=== PATIENT | female | born 1995 | race Hispanic/Latino ===

== ENCOUNTER 2017-09-15 04:32 | Emergency (ER) | payer SELFPAY ==
[2017-09-15 05:53] LABS: Pregnancy Test - Urine (BHCG) Negative (Negative); Pregu Control Background? CLEAR/WHITE (CLR/WHITE); Pregu Control Bar Appear? YES (CONTROL BAR); Specific Gravity 1.008 (1.002-1.036)
--- NOTE | 2017-09-15 07:45 | RAD ---
PA AND LATERAL VIEWS CHEST: HISTORY: Shortness of breath, cough. FINDINGS: The heart size is normal. The lungs are expanded without focal areas of consolidation, pneumothorax, or pleural effusions. IMPRESSION: No radiographic evidence of acute cardiopulmonary process. POS: [facility]
== END 2017-09-15 05:55 | disposition home or self-care (01) ==
LOC: ERS 04:32
DX: R06.02 Shortness of breath (principal); R05 Cough
CPT/HCPCS: 71046; 81025; 93005

== ENCOUNTER 2017-09-19 23:27 | Emergency (ER) | payer SELFPAY ==
[2017-09-20 00:09] LABS: #Basophils 0.1 thou/uL (0.0-0.2); #Eosinphils 0.2 thou/uL (0.0-0.7); #Lymphocytes 3.7 thou/uL (1.20-3.40); #Monocytes 0.5 thou/uL (0.11-0.59); #Neutrophils 4.6 thou/uL (1.40-6.50); %Basophils 1.1 % (0.0-1.0); %Eosinophils 1.7 % (0.0-10.0); %Lymphocytes 40.8 % (21.0-51.0); %Monocytes 5.9 % (0.0-10.0); %Neutrophils 50.5 % (42.0-75.0); Hemoglobin 13.1 g/dL (12.0-16.0); Mean Corpuscular Hemoglobin 29.7 pg (27.0-31.0); Mean Corpuscular Volume 84.8 fl (81.0-99.0); Mean Platelet Volume 8.1 fL (7.4-10.4); Platelet Count 274 thou/uL (130-400); Red Blood Cell (RBC) Count 4.42 mill/uL (4.20-5.40); White Blood Cell (WBC) Count 9.2 thou/uL (4.8-10.8)
[2017-09-20 00:14] LABS: BHCG - Serum Negative (NEGATIVE); Pregs Control Background? CLEAR/WHITE (CLR/WHITE); Pregs Control Bar Appear? YES (CONTROL BAR)
[2017-09-20 00:28] LABS: ALT (SGPT) 20 U/L (8-55); AST (SGOT) 16 U/L (5-34); Albumin 4.1 g/dL (3.5-5.0); Alkaline Phosphatase 69 U/L (40-150); Anion Gap 14 mmol/L (10-20); BUN (Urea Nitrogen) 11 mg/dL (7.0-18.7); Bilirubin, Total 0.3 mg/dL (0.2-1.2); Calc. Creatinine Clearance 0 mL/min (70-130); Calcium 9.5 mg/dL (7.8-10.44); Carbon Dioxide 21 mmol/L (22-29); Chloride 108 mmol/L (98-107); Estimated GFR-MDRD Greater than 90; Globulin 3.4 g/dL (2.4-3.5); Glucose 104 mg/dL (70-105); Potassium 3.3 mmol/L (3.5-5.1); Protein, Total 7.5 g/dL (6.0-8.3); Sodium 140 mmol/L (136-145)
--- NOTE | 2017-09-20 08:05 | RAD ---
PA AND LATERAL VIEWS CHEST: HISTORY: Dyspnea. FINDINGS: Comparison is made with the exam of 09/15/17. The heart size is normal. The lungs are expanded without focal areas of consolidation, pneumothorace s, or pleural effusions. No acute osseous abnormalities are seen. IMPRESSION: No radiographic evidence of acute cardiopulmonary process. POS: [facility]
== END 2017-09-20 00:52 | disposition home or self-care (01) ==
LOC: ERS 23:27
DX: R06.02 Shortness of breath (principal); F41.9 Anxiety disorder, unspecified; Z79.899 Other long term (current) drug therapy
CPT/HCPCS: 36415; 71046; 80053; 84703; 85025; 85379; 93005

== ENCOUNTER 2018-03-23 18:46 | Emergency (ER) | payer SELFPAY ==
[2018-03-23 19:54] LABS: Bilirubin Negative (Negative); Blood, Urine Large (Negative); Clarity CLEAR (Clear); Glucose, Urine (Dipstick) Negative (Negative); Leukocyte Negative (Negative); Nitrite Negative (Negative); Protein, Urine (Dipstick) Negative (Neg-Trace); Specific Gravity, Urine 1.023 (1.002-1.036); pH, Urine 5.5 (5.0-9.0)
[2018-03-23 19:58] LABS: Pregnancy Test - Urine (BHCG) Negative (Negative); Pregu Control Background? CLEAR/WHITE (CLR/WHITE); Pregu Control Bar Appear? YES (CONTROL BAR); Specific Gravity 1.023 (1.002-1.036)
[2018-03-23 20:01] LABS: Bacteria/HPF None Seen HPF (None Seen); Hyaline Casts/LPF 0-3 HYALINE CAST LPF (0-3 Hyaline); RBC/HPF GREATER THAN 50-TNTC HPF (0-3); Squamous Epithelial 0-3 HPF (0-3); WBC/HPF 0-3 HPF (0-3)
[2018-03-23 20:13] LABS: #Basophils 0.1 thou/uL (0.0-0.2); #Eosinphils 0.1 thou/uL (0.0-0.7); #Lymphocytes 2.7 thou/uL (1.20-3.40); #Monocytes 0.5 thou/uL (0.11-0.59); #Neutrophils 6.4 thou/uL (1.40-6.50); %Basophils 0.8 % (0.0-1.0); %Eosinophils 1.2 % (0.0-10.0); %Lymphocytes 27.3 % (21.0-51.0); %Monocytes 4.6 % (0.0-10.0); Hemoglobin 14.3 g/dL (12.0-16.0); Mean Corpuscular Volume 85.7 fL (78.0-98.0); Mean Platelet Volume 8.5 fL (7.4-10.4); Platelet Count 292 thou/uL (130-400); Red Blood Cell (RBC) Count 4.78 mill/uL (4.20-5.40); White Blood Cell (WBC) Count 9.7 thou/uL (4.8-10.8)
[2018-03-23 20:35] LABS: ALT (SGPT) 26 U/L (8-55); AST (SGOT) 18 U/L (5-34); Albumin 4.3 g/dL (3.5-5.0); Alkaline Phosphatase 79 U/L (40-150); Anion Gap 10 mmol/L (10-20); BUN (Urea Nitrogen) 9 mg/dL (7.0-18.7); Bilirubin, Total 0.4 mg/dL (0.2-1.2); Calc. Creatinine Clearance 0 mL/min (70-130); Calcium 9.4 mg/dL (7.8-10.44); Carbon Dioxide 26 mmol/L (22-29); Estimated GFR-MDRD Greater than 90; Globulin 3.7 g/dL (2.4-3.5); Glucose 92 mg/dL (70-105); Potassium 3.7 mmol/L (3.5-5.1)
[2018-03-23 20:39] LABS: Chloride 106 mmol/L (98-107); Sodium 138 mmol/L (136-145)
[2018-03-25 19:39] LABS: Chlamydia by PCR Not Detected (NotDetected); GC by PCR Not Detected (NotDetected)
== END 2018-03-23 21:40 | disposition home or self-care (01) ==
LOC: ERS 18:46
DX: N93.9 Abnormal uterine and vaginal bleeding, unspecified (principal); F41.9 Anxiety disorder, unspecified; N76.0 Acute vaginitis
CPT/HCPCS: 36415; 80053; 81003; 81015; 81025; 84702; 85025; 86900; 86901; 87480; 87491; 87510; 87591; 87660; 88305; 99284

== ENCOUNTER 2018-12-29 13:45 | Emergency (ER) | payer SELFPAY ==
[2018-12-29] MEDS ORDERED: Bicillin LA 1.2 MILLION UNITS/2 ML SYRINGE ONE (13:57)
[2018-12-29] MEDS ORDERED: Acetaminophen 650 MG/20.3 ML UDCUP ONE (13:57)
[2018-12-29] MEDS ORDERED: Dexamethasone 4 mg/ml Vial ONE (13:57)
[2018-12-29] MEDS ORDERED: Ibuprofen 200 MG TAB ONE (15:13)
== END 2018-12-29 15:30 | disposition home or self-care (01) ==
LOC: ERS 13:45
DX: J02.9 Acute pharyngitis, unspecified (principal); F41.9 Anxiety disorder, unspecified
CPT/HCPCS: 87081; 87430; 87804; 96360; 96372; J0561; J1100

== ENCOUNTER 2019-02-27 19:52 | Emergency (ER) | payer OTHER, SELFPAY | END 2019-02-27 22:27 | disposition home or self-care (01) | LOC: ERS 19:52 | DX: O99.511 Diseases of the respiratory system complicating pregnancy, first trimester (principal); J02.9 Acute pharyngitis, unspecified; O99.341 Other mental disorders complicating pregnancy, first trimester; F41.9 Anxiety disorder, unspecified; Z3A.10 10 weeks gestation of pregnancy | CPT/HCPCS: 87081; 87430; 87804; 99283 ==

== ENCOUNTER 2019-09-07 19:38 | Inpatient (IN) | payer MEDICAID, OTHER, SELFPAY ==
[~2019-09-07 19:38] MED LIST: Bupivacaine HCl 0.5%/Epinephrine 1:200,000/PF 30 ml Vial ONE; Lidocaine 2% MPF 10 ML AMP (For Epidural Use) ONE
--- NOTE | 2019-09-07 20:52 | PDOC.FPROB ---
FMR OB H&P: HPI - History of Present Illness Chief Complaint: contractions Indentification: 23yo History of Present Illness: Ms. Andrew Adams is a 23yo who presents at 38.2wks (BRANDEN 09/19/19 by LMP/18.5wk sono) for evaluation of contractions. She states the past few days she has had several contractions but this morning the increased in frequency. She states they are not painful, just uncomfortable. She denies decreased movement, vaginal bleeding, vaginal discharge, or loss of fluid. She states her has been uncomplicated. She follows with [facility] Sterling Bunch Primary Care Physician: BRITTNEY Sterling Bunch FMR OB H&P: Current - Care : 2 Para: 1001 Gestational age: 38.2 Due date: 09/19/2019 Dating Criteria: LMP/18.5 wk sono Course/Complications: Obesity. 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 - Family History Family History: Denies FMR OB H&P: Medications - Current Home Medications: Medication Instructions Recorded Confirmed Type Vit37/Iron/Folic Acid 1 tab PO DAILY 09/07/19 09/07/19 History [P[place]ata Chewable Tablet] Allergies/Adverse Reactions: Allergies Allergy/AdvReac Type Severity Reaction Status Date / Time No Known Allergies Allergy Verified 09/07/19 20:39 FMR OB H&P: ROS - Review of Systems General: denies: fever/chills, weight/appetite/sleep changes, night sweats Eyes: denies: eye pain, double vision, scotomas ENT: denies: nasal congestion, rhinorrhea, sore throat Cardiovascular: denies: chest pain, palpitation, edema Respiratory: denies: cough, congestion, shortness of breath Gastrointestinal: denies: abdominal pain, nausea, vomiting, diarrhea, constipation Genitourinary (Female): reports: contractions. denies: incontinence, dysuria, hematuria, vaginal discharge, vaginal pain, vaginal bleeding, vaginal pressure Musculoskeletal: denies: pain, stiffness Neurologic: denies: numbness, syncope Integumentary: denies: itching, rash FMR OB H&P: Vital Signs - Maternal Vital signs: BP initially 140/91. Repeat 128/85. - Heart Tones Baseline: 150 Variability: moderate Acceleration: present Deceleration: absent Category: category 1 [place] contractions every: Uterine irritability, irregular contractions FMR OB H&P: Physical Exam - Physical Exam General: NAD, awake, alert and oriented HEENT: normocephalic and atraumatic, PERRLA, EOMI, MMM, conjunctiva clear, grossly normal vision, grossly normal hearing Neck: supple, FROM, trachea midline Breast: symmetric Heart: RRR, normal S1/S2, no murmurs/rubs/gallops General: CTAB, no respiratory distress, good air movement Abdomen: soft, gravid, non-tender Musculoskeletal: normal gait and station, pulses present Skin: no rash, good tugor Lymphatic: no unusual bruising or bleeding, no purpura, no petechia Psychiatric: intact recent and remote memory, good judgement and insight, normal mood and affect - Pelvic Exam SVE: BY RN: /-1 FMR OB H&P: A/P - Problem List (1) Term Current Visit: Yes Status: Acute Code(s): Z34.90 - ENCNTR FOR SUPRVSN OF NORMAL , UNSP, UNSP TRIMESTER (2) Obesity Current Visit: Yes Status: Acute Code(s): E66.9 - OBESITY, UNSPECIFIED (3) Elevated BP without diagnosis of hypertension Current Visit: Yes Status: Acute Code(s): R03.0 - ELEVATED BLOOD-PRESSURE READING, W/O DIAGNOSIS OF HTN Disposition: Term sIUP, lucretia - Will monitor for 4 hours and repeat cervical exam. - heart tracing monitor and tocomoter - Uterine irritability may be 2/2 dehydration, will give 1 L of LR Elevated BP without diagnosis of HTN - Will monitor for 4 hours with serial blood pressure readings. - Does not meet criteria for gestational HTN at this time. - Will order Pre-E labs to further stratify her risk - Patient missed BPP / NST yesterday in clinic. Will order BPP at this time to further evaluate. UPDATE: - Patient has had 5 elevated blood pressure readings since being in L&D. - BPP 6/8, 0/2 for breathing. Category 1 FHT tracing. KMI 5.9. - Has not had two that have been 4 hours apart to make the diagnosis of gHTN. - Will keep the patient overnight and monitor BP. If she has another elevated pressure >140/90 will meet criteria for gHTN and will plan for induction of labor. - Patient was included in decision making and is in agreement. - Discussed plan with Dr. Hyman and he is in agreement. Discussion: Date/Time: 09/07/192050 This H&P was discussed with Drs. Curiel and Boogie who agree with the above documentation and plan. Signature: David CLAY PGY1 Addendum - Attending - Attending Attestation Date/Time: 09/08/19 0710 I personally evaluated the patient and discussed the management with Dr. Matos last night. I agree with the History, Examination, Assessment and Plan documented above with any addition or exceptions noted below.
[2019-09-07] MEDS ORDERED: hydrALAZINE 20 MG/ML VIAL SLOW IVP PRN (21:11)
[2019-09-07] MEDS ORDERED: Lactated Ringer's 1,000 ML IV SCH (21:15)
[2019-09-07 21:38] LABS: #Basophils 0.1 thou/uL (0.0-0.2); #Eosinphils 0.6 thou/uL (0.0-0.7); #Lymphocytes 2.6 thou/uL (1.20-3.40); #Monocytes 0.6 thou/uL (0.11-0.59); #Neutrophils 5.1 thou/uL (1.40-6.50); %Basophils 0.7 % (0.0-1.0); %Eosinophils 6.8 % (0.0-10.0); %Lymphocytes 29.1 % (21.0-51.0); %Monocytes 6.3 % (0.0-10.0); %Neutrophils 57.1 % (42.0-75.0); Hemoglobin 11.8 g/dL (12.0-16.0); Mean Corpuscular HGB CONC 33.3 g/dL (32.0-36.0); Mean Corpuscular Volume 87.2 fL (78.0-98.0); Mean Platelet Volume 10.2 fL (7.4-10.4); Platelet Count 214 thou/uL (130-400); RBC Distribution Width 13.2 % (11.5-14.5); Red Blood Cell (RBC) Count 4.05 mill/uL (4.20-5.40); White Blood Cell (WBC) Count 8.9 thou/uL (4.8-10.8)
[2019-09-07 21:58] LABS: ALT (SGPT) 13 U/L (8-55); AST (SGOT) 16 U/L (5-34); Albumin 3.2 g/dL (3.5-5.0); Alkaline Phosphatase 317 U/L (40-110); Anion Gap 14 mmol/L (10-20); BUN (Urea Nitrogen) 8 mg/dL (7.0-18.7); Bilirubin, Total 0.3 mg/dL (0.2-1.2); Calc. Creatinine Clearance 0 mL/min (70-130); Calcium 8.5 mg/dL (7.8-10.44); Carbon Dioxide 18 mmol/L (22-29); Chloride 109 mmol/L (98-107); Estimated GFR-MDRD Greater than 90; Globulin 3.2 g/dL (2.4-3.5); Glucose 73 mg/dL (70-105); Potassium 3.8 mmol/L (3.5-5.1); Protein, Total 6.4 g/dL (6.0-8.3); Sodium 137 mmol/L (136-145)
[2019-09-07] MEDS ORDERED: Misoprostol 200 MCG TAB ONE (22:35)
--- NOTE | 2019-09-07 22:53 | PDOC.BPN ---
- Brief Progress Note Reviewed labs via remote [facility] login GBS neg Hgb 12.1 HIV/RPR neg Blood type: O+, Antibody screen: neg
[2019-09-07 22:59] LABS: Creatinine, Urine 127.05 mg/dL (47-110)
[2019-09-08] MEDS ORDERED: Misoprostol 200 MCG TAB PR PRN (00:19)
[2019-09-08] MEDS ORDERED: Carboprost 250 MCG/ML AMP IM PRN (00:19)
[2019-09-08] MEDS ORDERED: Lidocaine 1% (PF) 30 ML VIAL SC PRN (00:19)
[2019-09-08] MEDS ORDERED: NS / Oxytocin 40 units/1000ml 1,000 ML IV PRN (00:19)
[2019-09-08] MEDS ORDERED: Acetaminophen 500 MG TAB PO PRN (00:22)
[2019-09-08] MEDS ORDERED: Ondansetron PF 4 MG/2 ML Vial IVP PRN ×2 (00:22→11:56)
[2019-09-08] MEDS ORDERED: Promethazine HCl 25 MG/ML VIAL IM PRN ×2 (00:22→11:56)
[2019-09-08] MEDS ORDERED: NS w/ Oxytocin 10 units 500 ML IV SCH (00:30)
[2019-09-08 01:49] VITALS: BMI 39.2
--- NOTE | 2019-09-08 01:50 | PDOC.LDPN ---
Labor & Delivery Progress Note - Subjective Subjective: comfortable - Objective Abnormal vital signs: BP 147/88 General: NAD, resting Uterine fundus: non tender SVE: 01:30 Dilation: 2 Effacement: 75% Station: -2 FHT: category 1 [place] contractions every: Irregular - Assessment (1) Term Code(s): Z34.90 - ENCNTR FOR SUPRVSN OF NORMAL , UNSP, UNSP TRIMESTER Current Visit: Yes Status: Acute (2) Obesity Code(s): E66.9 - OBESITY, UNSPECIFIED Current Visit: Yes Status: Acute (3) Elevated BP without diagnosis of hypertension Code(s): R03.0 - ELEVATED BLOOD-PRESSURE READING, W/O DIAGNOSIS OF HTN Current Visit: Yes Status: Acute -: Term sIUP, induction of labor for gestational HTN @ 38.3wks gestation - Patient has had persistently elevated blood pressures. - Will plan for induction of labor with cytotec. Admitting to L&D. - SVE @ 01:30 unchanged (275/-2), midposition, moderately firm. Gestational HTN - 2 blood pressure readings >140/90 >4 hours apart. - Pro:Cr 0.2. CBC, CMP WNL - BPP 6/8 (0/2 for breathing movement) - Will closely monitor pressures while laboring for severe features. Plan discussed with Dr. Curiel and Dr. Hyman.
[2019-09-08 02:33] LABS: Hemoglobin 11.1 g/dL (12.0-16.0); Mean Corpuscular HGB CONC 33.5 g/dL (32.0-36.0); Mean Corpuscular Hemoglobin 29.2 pg (27.0-31.0); Mean Corpuscular Volume 87.4 fL (78.0-98.0); Mean Platelet Volume 10.1 fL (7.4-10.4); Platelet Count 193 thou/uL (130-400); RBC Distribution Width 13.2 % (11.5-14.5); Red Blood Cell (RBC) Count 3.79 mill/uL (4.20-5.40); White Blood Cell (WBC) Count 9.6 thou/uL (4.8-10.8)
[2019-09-08 03:11] LABS: HBSAg Index 0.15 S/CO (0-0.99); Hep B Surf Ag Non-Reactive S/CO (NonReactive)
[2019-09-08 04:57] LABS: Syphilis Antibody Nonreactive (Nonreactive); Syphilis Antibody Index 0.03 S/CO (<1.00 Non-Reactive)
--- NOTE | 2019-09-08 05:01 | PDOC.LDPN ---
Labor & Delivery Progress Note - Subjective Subjective: comfortable, painful contractions - Objective Vital signs reviewed and normal: yes General: NAD, resting, breathing through contractions Uterine fundus: non tender SVE: @ 0500 by RN Dilation: 3 Effacement: 75% Station: -2 FHT: category 1 [place] contractions every: 3-4 min, irregular - Assessment (1) Term Code(s): Z34.90 - ENCNTR FOR SUPRVSN OF NORMAL , UNSP, UNSP TRIMESTER Current Visit: Yes Status: Acute (2) Obesity Code(s): E66.9 - OBESITY, UNSPECIFIED Current Visit: Yes Status: Acute (3) Elevated BP without diagnosis of hypertension Code(s): R03.0 - ELEVATED BLOOD-PRESSURE READING, W/O DIAGNOSIS OF HTN Current Visit: Yes Status: Acute Plan: continue plan of care -: Term sIUP, induction of labor for gestational HTN @ 38.3wks gestation - Patient has had persistently elevated blood pressures. - Will plan for induction of labor with cytotec. Admitting to L&D. - SVE @ 01:30 unchanged (2/75/-2), midposition, moderately firm. - SVE @ 05:00 (3/75/-2) soft. Start pitocin for augmentation. Gestational HTN - Pro:Cr 0.2. CBC, CMP WNL - BPP 6/8 (0/2 for breathing movement) - Will closely monitor pressures while laboring for severe features. - 3 elevated pressures since last check (140/82, 144/83, 156/81) Denies headache , vision changes, abdominal pain. Plan discussed with Dr. Curiel and Dr. Hyman.
--- NOTE | 2019-09-08 07:26 | ULT ---
BIOPHYSICAL PROFILE ASSESSED BY ULTRASOUND: Date: 09/07/2019 INDICATION: Elevated blood pressure readings. FINDINGS: The fetus received 2/2 for tone, 0/2 for breathing, 2/2 for movement, and 2/2 for a mniotic fluid volume, for a total biophysical profile of 6/8. IMPRESSION: Biophysical profile of 09/15. POS: OFF
--- NOTE | 2019-09-08 07:31 | ULT ---
LIMITED OBSTETRICAL ULTRASOUND: Date: 09/07/2019 INDICATION: Evaluate growth and position. Elevated blood pressure. FINDINGS: There is a single, live intrauterine gestation in vertex presentation. Cardiac activity is noted at 1 18 beats/minute. The placenta is on the right aspect of the uterus. The biparietal diameter measured 9.31 cm, giving an estimated gestational age of 37 weeks and 6 days (65th percentile). The head circumference measured 33.90 cm, giving an estimated gestational age of 39 weeks and 0 days (48th percentile). The abdominal circumference measured 33.87 cm, giving an estimated gestational age of 37 weeks and 5 days (55th percentile). The femoral length measured 7.39 cm, giving an estimated gestational age of 37 weeks and 6 days (41st percentile). The estimated weight is 3,347 gm +/- 495 gm (7 lbs. 6 oz. +/- 17 oz.)(55th percentile). The average gestational age by ultrasound is 38 weeks and 1 days. Estimated due date is 09/20/2019. The gestational age by clinical data is 38 weeks and 2 days, with estimated date of 09/19/2019. KIM was 5.9 cm, which is below the 2.5th percentile. Limited survey demonstrated normal bladder, diaphragm, kidneys, stomach, and four chamber heart. IMPRESSION: 1. Single, live intrauterine gestation, with size and dates as above. 2. Oligohydramnios. POS: OFF
[2019-09-08] MEDS: Lactated Ringer's 1,000 ML IV SCH ×3 (07:41→19:35)
[2019-09-08] MEDS: Misoprostol 100 MCG TAB VAG SCH ×5 (07:41→23:43)
[2019-09-08] MEDS ORDERED: Magnesium Sulfate 20 gm/500 ml 20 GM/500 ML BAG ONE (09:11)
[2019-09-08] MEDS ORDERED: Calcium Gluconate 4.6 MEQ in Sodium Chloride 0.9% 100 ML IVPB PRN (09:12)
[2019-09-08] MEDS ORDERED: Magnesium Sulfate 20 GM/WATER 500 ML BAG IVPB SCH (09:15)
[2019-09-08] MEDS ORDERED: Magnesium Sulfate 20 gm/500 ml 20 GM/500 ML BAG IVPB SCH (09:15)
--- NOTE | 2019-09-08 09:25 | PDOC.LDPN ---
Labor & Delivery Progress Note - Subjective Subjective: comfortable - Objective Vital signs reviewed and normal: yes General: NAD Uterine fundus: non tender Dilation: 4 Effacement: 75% Station: -2 FHT: category 1 [place] contractions every: 3-5min AROM: clear fluid Plan: labor augmentation -: sIUP in labor with preeclampsia - Now with severe range pressures, discussed with patient, starting Mg - FHTs Cat 1. - Desires epidural at some point - AROM with clear fluid - SVE /-2 Addendum - Attending - Attending Attestation Date/Time: 09/08/19 2129 I personally evaluated the patient and discussed the management with Dr. Delong. I agree with the History, Examination, Assessment and Plan documented above with any addition or exceptions noted below. Recheck in 2-4 hours.
[2019-09-08] MEDS ORDERED: Fentanyl 4 mcg/Bup 0.1% Cadd 100 ML ONE ×2 (11:15→18:28)
[2019-09-08] MEDS ORDERED: EPHEDRINE 25 MG/5 ML SYRINGE SLOW IVP PRN (11:56)
[2019-09-08] MEDS ORDERED: Lactated Ringer's 500 ML IV PRN (11:56)
[2019-09-08] MEDS ORDERED: Acetaminophen 325 MG TAB PO PRN (11:56)
[2019-09-08] MEDS ORDERED: diphenhydrAMINE 50 MG/ML VIAL IVP PRN (11:56)
[2019-09-08] MEDS ORDERED: Naloxone HCl 0.4 mg/ml Vial IVP PRN ×2 (11:56)
[2019-09-08] MEDS ORDERED: Communication Order-Pharmacy FS PRN (12:00)
[2019-09-08] MEDS: Fentanyl 4 mcg/Bupivacaine 0.1% Cassette 100 ML EPIDURAL SCH ×2 (12:25→18:33)
--- NOTE | 2019-09-08 13:39 | PDOC.LDPN ---
Labor & Delivery Progress Note - Subjective Subjective: comfortable - Objective Vital signs reviewed and normal: yes (BP WNL) General: NAD, resting Uterine fundus: non tender Dilation: 5 Effacement: 75% Station: -2 FHT: category 1, variability present [place] contractions every: 1-2 IUPC placed: yes Plan: labor augmentation -: sIUP in labor with preeclampsia - No further severe range pressures - Cont mg - No alarm sx, adequate urine output - FHTs Cat 1. - Epidural placed at 1100 - SVE /-2 - IUPC placed - Cxn q 1-2 - Will start pit if cxn not adequate or space per protocol Ge Alejandro PGY1 This plan was discussed with Dr. Bonilla who agrees.
--- NOTE | 2019-09-08 16:43 | PDOC.LDPN ---
Labor & Delivery Progress Note - Subjective Subjective: comfortable - Objective Vital signs reviewed and normal: yes (BP WNL) General: NAD, resting Uterine fundus: non tender Dilation: 6 Effacement: 90% Station: -1 FHT: category 1, early decelerations, variability present [place] contractions every: 3 Plan: pitocin for augmentation -: sIUP in labor with preeclampsia - No further severe range pressures - Cont mg - No alarm sx, adequate urine output - FHTs Cat 1, early decels intermittently - SVE 690/-1 - Cxn q 3 and adequate mvu - Continue pit augmentation Ge Alejandro PGY1 This plan was discussed with Dr. Bonilla who agrees.
--- NOTE | 2019-09-08 19:42 | PDOC.LDPN ---
Labor & Delivery Progress Note - Subjective Subjective: comfortable - Objective Vital signs reviewed and normal: yes Abnormal vital signs: 1800: 2 pressures 140s/80s General: NAD, resting, breathing through contractions Uterine fundus: non tender SVE: 1930 Dilation: 8 Effacement: 90% Station: -1 FHT: category 1, variability present [place] contractions every: 2-3 min - Assessment (1) Term Code(s): Z34.90 - ENCNTR FOR SUPRVSN OF NORMAL , UNSP, UNSP TRIMESTER Current Visit: Yes Status: Acute (2) Obesity Code(s): E66.9 - OBESITY, UNSPECIFIED Current Visit: Yes Status: Acute (3) Preeclampsia Code(s): O14.90 - UNSPECIFIED PRE-ECLAMPSIA, UNSPECIFIED TRIMESTER Current Visit: Yes Status: Acute -: Term sIUP, induction of labor for gHTN @ 38.3wks EGA Preeclampsia - Patient developed severe range BPs (>160 systolic) earlier in the day. She is now on magnesium infusion. - On pitocin for augmentation of labor. - DTRs 2+ UE/LE. Urinary output adequate. - FHT Category 1 tracing. - SVE @ 19:30 /-[address] Curiel and Dr. Mao. David CLAY PGY1
[2019-09-09] MEDS: Fentanyl 4 mcg/Bupivacaine 0.1% Cassette 100 ML EPIDURAL SCH (00:07)
--- NOTE | 2019-09-09 01:01 | PDOC.LDPN ---
Labor & Delivery Progress Note - Subjective Subjective: comfortable - Objective Vital signs reviewed and normal: yes General: NAD, resting SVE: 00:00 Dilation: 9.5 Effacement: 100% Station: -1 FHT: category 2, late decelerations, variability present [place] contractions every: 5 min - Assessment (1) Term Code(s): Z34.90 - ENCNTR FOR SUPRVSN OF NORMAL , UNSP, UNSP TRIMESTER Current Visit: Yes Status: Acute (2) Obesity Code(s): E66.9 - OBESITY, UNSPECIFIED Current Visit: Yes Status: Acute (3) Preeclampsia Code(s): O14.90 - UNSPECIFIED PRE-ECLAMPSIA, UNSPECIFIED TRIMESTER Current Visit: Yes Status: Acute Plan: labor augmentation, pitocin for augmentation -: Term sIUP, induction of labor for gHTN @ 38.3wks EGA Preeclampsia - She is on magnesium infusion. - On pitocin for augmentation of labor. Had to take a Pit break d/t FHT tracing. - DTRs 2+ UE/LE. Urinary output adequate. - FHT Category 2 tracing. - SVE @ 19:30 8/90/-1 - SVE @ 00:00 9.5/100/-[address] Bunch and Dr. Mao. David CLAY PGY1 Addendum - Attending - Attending Attestation Date/Time: 09/09/19 0136 Labor progress reviewed. No cervical change or descent in last 2 hours and cervix now edematous. Pitocin discontinued for short interval due to recurrent lates. Resolved with d/c of pitocin and position change, fluid bolus. Moderate variability throughout. Temp now 100.2 and baseline now increased to 160s from 140s. Situation discussed with patient by Dr. Bunch and will proceed with C/section for failure to descend.
--- NOTE | 2019-09-09 01:18 | PDOC.BPN ---
- Brief Progress Note Cervix unchanged from prior exam, no descent and some cervical swelling on maternal rt. Increasing FHR baseline, variability maintained, occasional lates. Maternal Tempt to 100.2. Discussed risks benefits and alternatives for delivery, pt agreeable to . Will dc pitocin and intitiate pre op abx.
[2019-09-09] MEDS ORDERED: CEFAZOLIN 2 GM in Premix Bag 1 BAG IVPB SCH (01:30)
[2019-09-09] MEDS ORDERED: Azithromycin 500 MG in Sodium Chloride 0.9% 250 ML 250 ML IVPB SCH (01:30)
[2019-09-09] MEDS ORDERED: Bicitra 30 ML UDCUP PO SCH (01:30)
[2019-09-09] MEDS: Lactated Ringer's 1,000 ML IV SCH (01:34)
[2019-09-09] MEDS: Misoprostol 100 MCG TAB VAG SCH ×2 (01:34→03:31)
[2019-09-09] MEDS ORDERED: Misoprostol 200 MCG TAB ONE (01:43)
[2019-09-09] MEDS ORDERED: Methylergonovine 0.2 MG/ML VIAL ONE (01:44)
[2019-09-09] MEDS ORDERED: Carboprost 250 MCG/ML AMP ONE (01:44)
[2019-09-09] MEDS ORDERED: NS / Oxytocin 40 units/1000ml 0 ML ONE (01:44)
[2019-09-09] MEDS ORDERED: MORPHINE 5 MG/10 ML PF VIAL ONE (01:50)
[2019-09-09] MEDS ORDERED: Oxytocin 10 UNITS/ML VIAL ONE (01:51)
[2019-09-09] MEDS ORDERED: Ketorolac Tromethamine 30 MG/ML VIAL ONE (01:51)
[2019-09-09] MEDS ORDERED: Ondansetron PF 4 MG/2 ML Vial ONE (01:51)
[2019-09-09] MEDS ORDERED: Dexamethasone 4 mg/ml Vial ONE (01:51)
[2019-09-09] MEDS ORDERED: Lidocaine 2% MPF 10 ML AMP (For Epidural Use) ONE (01:51)
[2019-09-09] MEDS ORDERED: EPHEDRINE 25 MG/5 ML SYRINGE ONE ×2 (02:02→02:59)
[2019-09-09] MEDS ORDERED: diphenhydrAMINE 50 MG/ML VIAL ONE (02:06)
[2019-09-09] MEDS ORDERED: Promethazine HCl 25 MG/ML VIAL ONE (02:25)
[2019-09-09 02:28] LABS: Analyzer IN Cardio OR
[2019-09-09 02:31] LABS: Actual Bicarbonate (HCO3v) 20 mEq/L (22-28); Analyzer IN Cardio OR; Base Excess -6.1 mEq/L (-2.0 to +3.0)
[2019-09-09] MEDS ORDERED: Naloxone HCl 0.4 mg/ml Vial IVP PRN ×2 (02:31)
[2019-09-09] MEDS ORDERED: HYDROmorphone 2 MG/ML VIAL SLOW IVP PRN (02:31)
[2019-09-09] MEDS ORDERED: Promethazine HCl 25 MG/ML VIAL IM PRN ×2 (02:31→05:47)
[2019-09-09] MEDS ORDERED: Meperidine HCl/PF 25 MG/ML VIAL SLOW IVP PRN (02:31)
[2019-09-09] MEDS ORDERED: L&D-Morphine 4 MG/ML VIAL SLOW IVP PRN (02:31)
[2019-09-09] MEDS ORDERED: Naloxone HCl 0.4 mg/ml Vial IV PRN (02:31)
[2019-09-09] MEDS ORDERED: Ondansetron HCl/PF 4 MG/2 ML Vial IVP PRN (02:31)
[2019-09-09] MEDS ORDERED: Ondansetron PF 4 MG/2 ML Vial IVP PRN ×2 (02:31→05:47)
[2019-09-09] MEDS ORDERED: Promethazine HCl 25 MG SUPP PR PRN (02:31)
[2019-09-09] MEDS ORDERED: diphenhydrAMINE 50 MG/ML VIAL IVP PRN (02:31)
[2019-09-09] MEDS ORDERED: Communication Order-Pharmacy FS SCH (02:45)
[2019-09-09] MEDS ORDERED: PHENYLEPHRINE-NS 100 MCG/ML 10 ML SYRINGE ONE (02:52)
--- NOTE | 2019-09-09 03:19 | PDOC.OPDEL ---
OB Operative/Delivery Note Delivery Dr/Surgeon: Ubaldo/[place] Pre-Delivery Diagnosis: other (Arrest of descent) Procedure/Post Delivery Dx: primary low transverse CS Weeks gestation: 38 Anesthesia: epidural - Findings A Sex: male Weight: 3.232 kg - 1 min: 9 - 5 min: 9 - Additional Findings/Plan Placenta delivered: manual removal findings: low transverse hysterotomy without extension, normal uterus, normal tubes, normal ovaries Estimated blood loss: 875 mL Compilations/Other Findings: I was present, assisted and supervised the 1* LCT C/S for this 23 yo F @38 weeks for arrest of descent. Viable male infant in vtx presentation LOT position. Apgars 9/9. QBL 875 mL. Mother to LDR 6 for LICU care due to severe gHTN. Residents: Ubaldo. Post delivery plan: recovery in LICU
--- NOTE | 2019-09-09 04:36 | OP ---
DATE OF PROCEDURE: 09/09/2019 RESIDENT SURGEONS: 1. Qian Matos MD. 2. Mike Bunch DO. PROCEDURE PERFORMED: Primary low transverse section. PREOPERATIVE DIAGNOSES: 1. Term intrauterine . 2. Gestational hypertension with severe range pressures. 3. Arrest of labor. POSTOPERATIVE DIAGNOSES: 1. Term intrauterine , delivered. 2. Gestational hypertension with severe range pressures. 3. Arrest of labor. ANESTHESIA: Epidural. INDICATIONS FOR PROCEDURE: The patient is a 23-year-old, G2, P 1-0-0-1 L 2-0-0- 2 at 38 and 6 weeks, who presented with intermittent contractions, was noted to have severe range pressures and started on magnesium. Pitocin was initiated throughout the day and station remained unchanged at -1. Cervix dilated to 9.5 cm and remained unchanged with noted cervical swelling and decision was made for primary low transverse section. PROCEDURE IN DETAIL: After risks, benefits, alternatives explained to the patient, she gave informed consent. Preoperative antibiotics included 2 g Ancef IV in addition to 500 mg of azithromycin. The patient was taken to the operating room and epidural was bolused. The patient was in the supine position with a left tilt, prepped and draped in usual sterile fashion. Pfannenstiel incision was made with a scalpel and carried down to the level of fascia, which was sharply nicked. Fascial cut was extended bilaterally with Alston scissors. The inferior and superior edges of the cut fascial edges were elevated with Jodee clamps and the underlying rectus muscles were sharply and bluntly dissected free. The recti were divided digitally and retracted manually. Peritoneum was entered bluntly and retracted manually. Bladder blade was placed. A low-transverse score was made with a scalpel and the uterus was entered in the midline. Hysterotomy was then extended in a cephalocaudal fashion. The infant was noted to be vertex in the OOT position and was easily delivered by fundal pressure. The mouth and nares were bulb suctioned. The cord was clamped and cut and grossly normal male was handed to awaiting nurse. Cord blood was obtained in addition to a cord segment for cord gas. The placenta was delivered spontaneously, found to be intact with three-vessel cord and sent for Pathology review. The uterus was then externalized and endometrium was curetted with dry lap. The bladder blade was placed and the uterus was closed with a running locking one Monocryl suture followed by a running nonlocking one Monocryl suture. Following this, hemostasis was noted. The abdomen was irrigated with saline and suctioned free of clots. The uterus was internalized. Hysterotomy was again noted to be hemostatic. Peritoneum was approximated with 2-0 chromic suture in a running fashion. The fascia was closed with a running nonlocking 0 Vicryl suture. The subcutaneous tissue was then inspected and small bleeders were cauterized. It was then closed with three simple interrupted chromic suture. The skin was then approximated with petros and a pressure dressing was applied. All counts were correct. The patient tolerated the procedure well and was taken to recovery room in stable condition. ESTIMATED BLOOD LOSS: 550 mL. QUANTITATIVE BLOOD LOSS: Pending at this time. COMPLICATIONS: None. SPECIMENS: Cord blood sent to the lab for blood type in addition to placenta for Pathology and cord segment for cord gas. FINDINGS: 1. Grossly normal male infant with Apgars of 9 and 9, delivered at 0217 hours. 2. Grossly normal placenta with three-vessel cord, sent to Pathology for further review. DRAINS: Wall to gravity draining clear urine. Job ID: [id number] [facility]
[2019-09-09] MEDS ORDERED: HYDROcodone/Acetaminophen 5/325 mg Tablet PO PRN ×2 (05:47→14:45)
[2019-09-09] MEDS ORDERED: diphenhydrAMINE 25 MG CAP PO PRN (05:47)
[2019-09-09] MEDS ORDERED: Calcium Gluconate 4.6 MEQ in Sodium Chloride 0.9% 100 ML IVPB PRN (05:47)
[2019-09-09] MEDS ORDERED: Magnesium Sulfate 20 gm/500 ml 20 GM/500 ML BAG IVPB SCH (05:47)
[2019-09-09] MEDS ORDERED: hydrALAZINE 20 MG/ML VIAL SLOW IVP PRN (05:47)
--- NOTE | 2019-09-09 06:59 | PDOC.PP ---
Post Progress Note Post Day #: 0 Subjective: Doing well. No concerns or complaints. PO intake tolerated: no Flatus: no Ambulation: no Weight Weight 87.997 kg BP 106/55. No Elevated pressures postoperatively - Physical Examination General: NAD Cardiovascular: no m/r/g, RRR Respiratory: clear to auscultation bilaterally, non-labored breathing Abdominal: + bowel sounds, no distention, appropriately TTP Skin: CS incision dry & intact Neurological: no gross focal deficits Psychiatric: A&Ox3, normal affect Result Diagrams: 09/08/19 02:25 09/07/19 21:18 Additional Labs: Post Labs Blood Type O POSITIVE 09/08/19 02:25 Hep Bs Antigen Non-Reactive S/CO (NonReactive) 09/08/19 02:25 (1) Term Code(s): Z34.90 - ENCNTR FOR SUPRVSN OF NORMAL , UNSP, UNSP TRIMESTER Status: Acute (2) Obesity Code(s): E66.9 - OBESITY, UNSPECIFIED Status: Acute (3) Preeclampsia Code(s): O14.90 - UNSPECIFIED PRE-ECLAMPSIA, UNSPECIFIED TRIMESTER Status: Acute (4) Term delivered Code(s): O80 - ENCOUNTER FOR FULL-TERM UNCOMPLICATED DELIVERY Status: Acute (5) delivery delivered Code(s): O82 - ENCOUNTER FOR DELIVERY WITHOUT INDICATION Status: Acute - Assessment/Plan Term sIUP, delivered via section Gestational HTN with severe range pressure PPD #0 - She is on magnesium infusion. Plan to keep on mag for 24 hours post delivery. - DTRs 2+ UE/LE. Urinary output adequate. - No elevated pressures since delivery - QBL 1019mL - Routine PP care Plan discussed with Dr. Bunch and Dr. Mao. David CLAY PGY1
[2019-09-09] MEDS ORDERED: Adacel (T-DAP) 0.5 ML SYRINGE IM ONE (09:00)
--- NOTE | 2019-09-09 10:58 | PDOC.BPN ---
- Brief Progress Note S: Pt reports feeling well, denies FERNANDEZ, SOB, Abd pain or swelling. O: vitals: BP 122/62, HR 91, 97% o2 sat on RA. BP's have all been in WNL since last mag check approx 7 AM and since starting mag. Gen: resting well, holding infant. heart: RRR, no M/G/G lungs: CTAB, no resp distress, good air movement Abd: incision bandage dry and clean, appropriately TTP Ext: DTR's 2+ B Knees. A&P: Term sIUP, delivered via section Gestational HTN with severe range pressure PPD #0 - She is on magnesium infusion. Plan to keep on mag for 24 hours post delivery until 0200 09/10/19. - DTRs 2+ LE. Urinary output adequate. - No elevated pressures since delivery, BP at time of eval 122/62. - Recheck pt in 4 hours.
[2019-09-09] MEDS: Prenatal Vitamin 1 TAB PO SCH (13:51)
[2019-09-09] MEDS: Docusate Calcium (SURFAK) 240 MG CAP PO SCH (13:52)
--- NOTE | 2019-09-09 15:33 | PDOC.BPN ---
- Brief Progress Note S: Pt reports feeling well, denies FERNANDEZ, SOB, Abd pain or swelling. Resting and taking a nap. Pt is very hungry. O: vitals: BP 98/53, HR 72, BP's have all been in WNL since last mag check approx 11 AM and since starting mag. No severe range since starting mag. Gen: resting well, NAD heart: RRR, no M/G/G lungs: CTAB, no resp distress, good air movement Abd: incision bandage dry and clean, appropriately TTP Ext: DTR's 2+ B Knees and elbows A&P: Term sIUP, delivered via section Gestational HTN with severe range pressure PPD #0 - She is on magnesium infusion. Plan to keep on mag for 24 hours post delivery until 0200 09/10/19. - DTRs 2+ LE/UE. Urinary output adequate 250-150 ml/hr. - No elevated pressures since delivery, BP at time of eval 98/53. - Recheck pt in 4 hours. - Ordered diet for pt Discussed care with Dr. Pop and Dr. Clemons, who are in agreement with above plan.
[2019-09-09] MEDS: Ketorolac Tromethamine 30 MG/ML VIAL IVP SCH ×2 (17:25→17:32)
--- NOTE | 2019-09-09 21:53 | PDOC.BPN ---
- Brief Progress Note 1800: RN called and stated reflexes were decreased and patient was sleepy. Stat mag ordered. 5.6. Turned mag down to 1 and patient improved. 2100: S: Pt reports feeling well, denies FERNANDEZ, SOB, Abd pain or swelling. O: Vitals: reviewed and WNL. No elevated pressures. Abd: incision bandage dry and clean, appropriately TTP Ext: DTR's 2+ B Knees and elbows A&P: Term sIUP, delivered via section Gestational HTN with severe range pressure PPD #0 - She is on magnesium infusion. Plan to keep on mag for 24 hours post delivery until 0200 09/10/19. - DTRs 2+ LE/UE. Urinary output adequate >150 ml/hr. - No elevated pressures since delivery, BP at time of eval 107/55 - Recheck pt in 4 hours and d/c mag at 0200. Discussed care with Dr. Mao who is in agreement with above plan.
--- NOTE | 2019-09-10 01:43 | PDOC.BPN ---
- Brief Progress Note Subjective:patient is resting comfortably. Denies headache vision changes, abd pain. Objective: Vital signs reviewed, WNL. urine output 60-100/hour. DTRs 2+ bilaterally No edema Assessment and Plan: Term sIUP, delivered via section Gestational HTN with severe range pressure PPD #0 - She is on magnesium infusion. Plan to keep on mag for 24 hours post delivery until 0200 09/10/19. - DTRs 2+ LE/UE. Urinary output adequate >150 ml/hr. - No elevated pressures since delivery, BP at time of eval 90s/50s - Recheck pt in 4 hours and d/c mag at 0200. Discussed care with Dr. Mao who is in agreement with above plan.
[2019-09-10] MEDS: Ibuprofen 800 MG TAB PO SCH ×3 (04:13→21:53)
[2019-09-10] MEDS: Ketorolac Tromethamine 30 MG/ML VIAL IVP SCH (04:49)
[2019-09-10] MEDS: Docusate Calcium (SURFAK) 240 MG CAP PO SCH ×3 (04:49→21:53)
[2019-09-10 05:38] LABS: Hemoglobin 8.1 g/dL (12.0-16.0); Mean Corpuscular HGB CONC 33.6 g/dL (32.0-36.0); Mean Corpuscular Hemoglobin 29.3 pg (27.0-31.0); Mean Corpuscular Volume 87.3 fL (78.0-98.0); Mean Platelet Volume 9.5 fL (7.4-10.4); Platelet Count 181 thou/uL (130-400); RBC Distribution Width 13.7 % (11.5-14.5); Red Blood Cell (RBC) Count 2.77 mill/uL (4.20-5.40); White Blood Cell (WBC) Count 14.1 thou/uL (4.8-10.8)
--- NOTE | 2019-09-10 07:51 | PDOC.PP ---
Post Progress Note Post Day #: 1 Subjective: 23 yo now 2 pp day 1 s/p pLTCS 2/2 AOL. Pt reports pain controlled on current regimen. Mag dcd at 0200, no severe range pressures since delivery. No headache cp, sob, NVDC. Lindo removed this am and voiding trial @ 0900. PO intake tolerated: yes Flatus: yes Ambulation: no Vital Signs (12 hours) Temp Pulse Resp BP Pulse Ox 09/10/19 03:50 98.6 F 78 19 121/58 L 97 09/10/19 01:00 98.3 F 09/09/19 21:00 98.4 F Weight Weight 87.997 kg - Physical Examination General: NAD Cardiovascular: no m/r/g, RRR Respiratory: clear to auscultation bilaterally, non-labored breathing Abdominal: + bowel sounds, no distention, appropriately TTP Skin: CS incision dry & intact (No surrounding erythema or edema near pressure dressing) Neurological: no gross focal deficits Psychiatric: A&Ox3 Result Diagrams: 09/10/19 05:23 09/07/19 21:18 Additional Labs: Post Labs Blood Type O POSITIVE 09/08/19 02:25 Hep Bs Antigen Non-Reactive S/CO (NonReactive) 09/08/19 02:25 (1) delivery delivered Code(s): O82 - ENCOUNTER FOR DELIVERY WITHOUT INDICATION Status: Acute (2) Elevated BP without diagnosis of hypertension Code(s): R03.0 - ELEVATED BLOOD-PRESSURE READING, W/O DIAGNOSIS OF HTN Status : Acute (3) Preeclampsia Code(s): O14.90 - UNSPECIFIED PRE-ECLAMPSIA, UNSPECIFIED TRIMESTER Status: Acute - Assessment/Plan 1) pLTCS - encourage ambulation today - voiding trial scheduled, lindo removed just before fire 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 Encourage ambulation. Void trial pending. Addendum - Attending - Attending Attestation Date/Time: 09/15/19 [id number] I personally evaluated the patient and discussed the management with Dr. Bunch on 09/10/19. I agree with the History, Examination, Assessment and Plan documented above with any addition or exceptions noted below. Incision c/d/I. Routine Postop care.
[2019-09-10] MEDS: Prenatal Vitamin 1 TAB PO SCH (08:47)
[2019-09-10] MEDS: HYDROcodone/Acetaminophen 5/325 mg Tablet PO PRN ×4 (09:59→23:22)
[2019-09-11] MEDS: Ibuprofen 800 MG TAB PO SCH ×2 (05:17→13:04)
[2019-09-11 08:02] VITALS: BP 127/77; TEMP 97.9
[2019-09-11] MEDS: Docusate Calcium (SURFAK) 240 MG CAP PO SCH (08:02)
[2019-09-11] MEDS: Prenatal Vitamin 1 TAB PO SCH (08:02)
--- NOTE | 2019-09-11 08:12 | PDOC.PP ---
Post Progress Note Post Day #: 2 Subjective: 23 yo G2 now P2 pp day 2. All pp milestoned met, pain controlled currently. Plan for dc to home today. PO intake tolerated: yes Flatus: yes Ambulation: yes Vital Signs (12 hours) Temp Pulse Resp BP Pulse Ox 09/11/19 08:00 97.9 F 81 18 127/77 97 09/11/19 05:20 98.6 F 63 16 120/79 09/10/19 23:20 99.2 F 70 16 125/65 Weight Weight 87.997 kg - Physical Examination General: NAD Cardiovascular: no m/r/g, RRR Respiratory: clear to auscultation bilaterally, non-labored breathing Abdominal: + bowel sounds, lochia, no distention, appropriately TTP Skin: CS incision dry & intact, no rash Neurological: no gross focal deficits Psychiatric: normal affect Result Diagrams: 09/10/19 05:23 09/07/19 21:18 Additional Labs: Post Labs Blood Type O POSITIVE 09/08/19 02:25 Hep Bs Antigen Non-Reactive S/CO (NonReactive) 09/08/19 02:25 (1) delivery delivered Code(s): O82 - ENCOUNTER FOR DELIVERY WITHOUT INDICATION Status: Acute (2) Elevated BP without diagnosis of hypertension Code(s): R03.0 - ELEVATED BLOOD-PRESSURE READING, W/O DIAGNOSIS OF HTN Status : Acute (3) Preeclampsia Code(s): O14.90 - UNSPECIFIED PRE-ECLAMPSIA, UNSPECIFIED TRIMESTER Status: Acute - Assessment/Plan 1) pLTCS - doing well - ok to dc to home today 2) gHTN with severe range pressures - 24 hours mag pp - no repeat pressures - monitor, stable and ok for dc to home - 1 week f/u for staple removal and bp check @ pnc Dispo: Doing well, dc to home today. Addendum - Attending - Attending Attestation Date/Time: 09/15/19 [id number] I personally evaluated the patient and discussed the management with Dr. Bunch on 09/11/19. I agree with the History, Examination, Assessment and Plan documented above with any addition or exceptions noted below. Stable for d/c home.
[2019-09-11] MEDS: HYDROcodone/Acetaminophen 5/325 mg Tablet PO PRN (13:03)
--- NOTE | 2019-09-13 06:09 | PQF ---
[employer] Reports Winform Viewer ALAN MEZA ANNA MD [id number] CLINICAL DOCUMENTATION CLARIFICATION FORM: POST DISCHARGE Addendum to original discharge summary date: ____ Late entry note date: __ DATE: 09/13/19 ATTN:Rosie Mao Please exercise your independent, professional judgment in responding to the clarification form. Clinical indicators are provided on the bottom of this form for your review ___ Final Diagnosis on the Pathology report: Acute chorioamnionitis Based on the pathological findings of Acute chorioamnionitis, is this a confirmed diagnosis for this patient? [ ] Yes, this is a secondary diagnosis for this patient [ ] Other (additional comments): [ ] Unable to determine For continuity of documentation, please document condition throughout progress notes and discharge summary. Thank You. CLINICAL INDICATORS - SIGNS/ SYMPTOMS / LABS / RESULTS AND LOCATION IN MR Pathology Report- Acute chorioamnionitis PN pg.1- Maternal Temp to 100.2 OP report pg.1- Gross normal placenta with 3-vessel cord, sent to pathology for further review RISK FACTORS / RESULTS AND LOCATION IN MR 38weeks H and P pg.1 Obesity- H and P pg.4 Gestational HTN- PN pg.1 TREATMENTS / RESULTS AND LOCATION IN MR IV fluids- MAR Azithromycin 500,g PO- MAR Cefazolin 2gm IV- MAR (This form is maintained as a part of the permanent medical record) 2014 [email or web address], [employer]. All Rights Reserved [email or web address]
== END 2019-09-11 14:32 | disposition home or self-care (01) | DRG 787 ==
LOC: L&D/OP 19:38 → L&D 09-08 00:25 → OBSVTOIN 09-08 00:25 → 3SW 09-10 04:07
PROVIDERS: ADMIT Family Medicine; ATTEND Family Medicine
PROC: 10D00Z1 Extraction of Products of Conception, Low, Open Approach (ICD-10-PCS; principal; 2019-09-09)
DX: O14.14 Severe pre-eclampsia complicating childbirth (principal); O75.2 Pyrexia during labor, not elsewhere classified; O99.214 Obesity complicating childbirth; E66.9 Obesity, unspecified; O76 Abnormality in fetal heart rate and rhythm complicating labor and delivery; O32.4XX0 Maternal care for high head at term, not applicable or unspecified; Z3A.38 38 weeks gestation of pregnancy; Z37.0 Single live birth; Z90.49 Acquired absence of other specified parts of digestive tract
CPT/HCPCS: 36415; 51702; 76815; 76819; 80053; 82570; 82805; 83735; 84156; 85025; 85027; 86780; 86850; 86900; 86901; 87340; 88307; 99285; J0456; J0670; J0690; J1100; J1200; J1885; J2001; J2210; J2274; J2405; J2550; J2590; J3475; J3490; J7050